=== PATIENT | male | born 1980 | race Caucasian/White ===

== ENCOUNTER 2021-02-08 19:27 | Emergency (ER) | payer OTHER, SELFPAY ==
[2021-02-08 19:50] VITALS: BP 156/98; PULSE 94; RESP 16; TEMP 36.9; O2SAT 100; BMI 27.1
--- NOTE | 2021-02-08 19:53 | DI.RAD.S_ITS ---
PROCEDURE: XR FINGER LT MIN 2V INDICATIONS: chopped tip of thumb with hacket TECHNIQUE: 3 views of the 1st finger(s) acquired. COMPARISON: None. FINDINGS: Bones: No fractures or dislocations. No suspicious bony lesions. Soft tissues: No suspicious soft tissue calcifications. 1st digit tuft soft tissue injury. IMPRESSION: No fracture of the 1st digit. Dictated by: Andi Breaux M.D. on 02/08/2021 at 22:19 Approved by: Andi Breaux M.D. on 02/08/2021 at 22:20
[2021-02-08] MEDS: IBUPROFEN 400 MG TABLET PO (20:38)
[2021-02-08] MEDS: OXYCODONE/ACETAMINOPHEN 5/325 TABLET 1 TAB PO (20:38)
[2021-02-08] MEDS: BUPIVACAINE 0.25% (PF) VIAL 30 ML INJ (20:40)
[2021-02-08] MEDS: cephALEXin 250 MG PREPACK 1 BOTTLE MISC (21:05)
[2021-02-08] MEDS: BACITRACIN OINT 0.9 GM PCKT 1 APPLIC TOP (21:06)
[2021-02-08] MEDS: OXYCODONE/APAP 5/325 PREPACK 1 BOTTLE MISC (21:38)
[2021-02-08 21:42] VITALS: BP 176/97; PULSE 88; RESP 16; O2SAT 96
--- NOTE | 2021-02-09 04:00 | ED.WOUNDLAC ---
HPI - Wound/Laceration General Chief Complaint: Wound/Laceration Stated Complaint: CUT LEFT HAND THUMB WITH AN AXE Time Seen by Provider: 02/08/21 20:06 Source: patient Mode of arrival: Ambulatory Limitations: no limitations History of Present Illness HPI narrative: Otherwise healthy 40-year-old gentleman on a camping trip this weekend with cutting cancelling and his his hatchet managed to cut off the tip of his thumb. Related Data Previous Rx's Medication Instructions Recorded cephalexin 500 mg PO TID #15 cap 02/08/21 oxycodone-acetaminophen 1 tab PO Q6H PRN #10 tab 02/08/21 Allergies Allergy/AdvReac Type Severity Reaction Status Date / Time No Known Drug Allergies Allergy Verified 02/08/21 19:49 Review of Systems Review of Systems Narrative: Pertinent positive and negative findings as per HPI Remainder of review of systems is otherwise unremarkable for Constitutional: Fevers, chills, weakness ENT: No sore throat, neck pain, ear pain CV: Chest pain, palpitations, Respiratory: Cough, wheeze, dyspnea GI: Nausea, vomiting, diarrhea, Patient History Social History Smoking Status: Current every day smoker Smoking Status: Current every day smoker alcohol intake frequency: a few times a week Substance Use Type: does not use Exam Narrative Exam Narrative: General: Alert appropriate in no acute distress Respiratory: Able to speak in full sentences, no obvious respiratory distress Skin: No obvious rashes, warm and dry Neurologic: Grossly intact no obvious asymmetries or abnormalities Psych: appropriate insight and affect, cooperative Extremity: Left hand is examined. He has sliced off the very distal pad of the left thumb with not enough epidermis for aesthetic closure. He did not involve his nail and there is no bone involvement. Initial Vital Signs Initial Vital Signs: Vital Signs Temperature 98.4 F 02/08/21 19:50 Pulse Rate 94 H 02/08/21 19:50 Respiratory Rate 16 02/08/21 19:50 Blood Pressure 156/98 H 02/08/21 19:50 Pulse Oximetry 100 02/08/21 19:50 Procedures Laceration Repair Left thumb tip: Site: other (Thumb) Side (If applicable): left Size (cm): 2 Description: other (Amputation of the distal thumb pad) Depth: simple, single layer Local Anesthetic: lidocaine 1% (Digital block) and with bicarb Amount of anesthesia used (mL): 8 Pre-repair: deep structures intact Skin layer closed with: nylon Size (cm): 4-0 Number of sutures: 3 Technique: horizontal mattress (Sutures used to pull the edges of the wound as close together is possible to minimize healing surface) Course Orders Ordered: ED Orders 02/08/21 19:53 XR finger LT min 2V Stat Discontinued Medications Bacitracin (Bacitracin Oint 0.9 Gm Pckt) 1 applic TOP NOW ONE Stop: 02/08/21 20:48 Last Admin: 02/08/21 21:06 Dose: 1 applic Documented by: DIXON Bupivacaine HCl (Bupivacaine 0.25% (Pf) Vial) 30 ml INJ INTRA-OP ONE Stop: 02/08/21 20:23 Last Admin: 02/08/21 20:40 Dose: 10 ml Documented by: DIXON Cefazolin Sodium (Cephalexin 250 Mg Prepack) 1 bottle MISC SEEINSTR ONE Stop: 02/08/21 21:00 Last Admin: 02/08/21 21:05 Dose: 250 mg Documented by: DIXON Ibuprofen (Ibuprofen 400 Mg Tablet) 400 mg PO NOW ONE Stop: 02/08/21 20:35 Last Admin: 02/08/21 20:38 Dose: 400 mg Documented by: DIXON Oxycodone/Acetaminophen (Oxycodone/Acetaminophen 5/325 Tablet) 1 tab PO NOW ONE Stop: 02/08/21 20:35 Last Admin: 02/08/21 20:38 Dose: 1 tab Documented by: DIXON Oxycodone/Acetaminophen (Oxycodone/Apap 5/325 Prepack) 1 bottle MISC SEEINSTR ONE Stop: 02/08/21 21:35 Last Admin: 02/08/21 21:38 Dose: 1 bottle Documented by: DIXON Vital Signs Vital signs: Vital Signs - 8 hr 02/08/21 21:42 Pulse Rate 88 Respiratory Rate 16 Blood Pressure 176/97 H Pulse Oximetry 96 MDM - Wound/Laceration Medical Records Attestation: I reviewed the patient's medical records. MDM Narrative Medical decision making narrative: 40-year-old gentleman with traumatic amputation of the very distal tip of his thumb. Hemostatic closure to minimize healing area size. Recommended sutures stay in for 14 days. He is placed on prophylactic antibiotics. Reviewed wound care and signs and symptoms of infection and when to return to the emergency department. He is safe for home discharge Discharge Plan Departure Patient Disposition: Home Clinical Impression: Amputation of finger tip Qualifiers: Encounter type: initial encounter Qualified Code(s): S68.119A - Complete traumatic metacarpophalangeal amputation of unspecified finger, initial encounter Instructions: DI for Laceration Repair Activity Restrictions/Additional Instructions: Thank you for coming in today I am sorry you ended up in the ER with the 1st night of your camping trip You did cut off the very tip of your left thumb. You did not get to bone. The sutures I used pulled the edges of the wound together so the total wound is smaller but there was not enough skin to get skin to skin closure Please leave the sutures in for 2 weeks, they can come out on or about February 22. Using go to your primary care doctor, a walk-in clinic or return to the emergency department. Please complete a 5 day course of cephalexin-Keflex to prevent infection. Use bacitracin or Neosporin type antibiotic ointment on the tip of the finger to help with healing and keep the area covered with a Band-Aid. It needs to be changed at least daily and whenever it is soiled. Using 400 mg of ibuprofen (2 [id number] pills) and 1 Tylenol every 6 hours can be very helpful in controlling pain. Using 2 ibuprofen and 1 Percocet for severe pain is appropriate as well. If you have worsening symptoms or other issues please return to the ER I hope you heal quickly Prescriptions: New oxycodone-acetaminophen 5-325 mg tablet 1 tab PO Q6H PRN (Reason: pain) Qty: 10 RF: 0 cephalexin 500 mg capsule 500 mg PO TID Qty: 15 RF: 0
== END 2021-02-08 21:44 | disposition home or self-care (01) ==
PROVIDERS: Emergency Provider Emergency Medicine
DX: S68.119A Complete traumatic metacarpophalangeal amputation of unspecified finger, initial encounter (principal); W27.0XXA Contact with workbench tool, initial encounter
CPT/HCPCS: 73140; 99283